=== PATIENT | female | born 1960 | race Caucasian/White ===

== ENCOUNTER 2022-08-06 21:08 | Emergency (ER) | payer MEDICAID, SELFPAY ==
[2022-08-06 21:14] VITALS: BP 190/72; PULSE 76; RESP 16; TEMP 36.3; O2SAT 99; BMI 30.9
--- NOTE | 2022-08-06 21:52 | ED_ITS ---
HPI - Skin/Abscess/Foreign Bdy General Chief complaint: Skin/Abscess/Foreign Body Stated complaint: POISON KATARINA ON ARM & IS SPREADING Time Seen by Provider: 08/06/22 21:31 History of Present Illness HPI narrative: This patient comes in with pruritic rash on her upper extremities. This started about 3 days ago. She was in an area outdoors where she was told there was some plants that were poisonous. She has a few lesions on each arm and a couple on her legs that are macular papular rashes with pruritus. She states there was some vesicular component to it previously. She does not report any shortness of breath. She has not had any fevers. She did use hydrocortisone cream with transient minimal relief. Related Data Home Medications Medication Instructions Recorded Confirmed No Known Home Medications 08/06/22 08/06/22 Allergies Allergy/AdvReac Type Severity Reaction Status Date / Time house dust mite Allergy Intermediate congestion Verified 08/06/22 21:21 levofloxacin Allergy Intermediate myalgias, Verified 08/06/22 21:21 palpitations Iodinated Contrast Media Allergy Unknown Verified 08/06/22 21:21 Review of Systems Status of ROS: Reports: 10 or more systems reviewed and unremarkable except as noted in History and below Narrative: Constitutional: No fevers, no weight gain or loss. Eyes: No discharge. No vision changes. HENT: No congestion, no sore throat, no ear pain. Cardiovascular: No chest pain, no palpitations. Respiratory: No shortness of breath, no wheezes, no cough. Gastrointestinal: No abdominal pain, no vomiting, no diarrhea. Genitourinary: No dysuria, no hematuria. Musculoskeletal: Normal range of motion. Skin: Pruritic rash as described above. Neurological: No dizziness, weakness, sensory change, speech change. Endo/Heme/Allergies: No bruising or bleeding. No polydipsia. Pysch: no suicidality, no anxiety, no insomnia. All other systems reviewed and are negative. Exam Narrative: Exam Narrative: Constitutional: Well-developed, well-nourished, no acute distress. HEENT: Normocephalic, atraumatic. Neck: Normal range of motion. Nontender. Supple. Heart: Intact distal pulses. Lungs: No chest discomfort. No wheezes, rhonchi, or rales. Abdomen: Nontender. Back: Normal range of motion. Extremities: Normal range of motion. No injury. Skin: Maculopapular areas of rash on the arms and legs typical of poison katarina or poison oak. Neurologic: No altered sensation. No weakness. Alert and oriented. Psychiatric: No suicidality. No anxiety or depression. No insomnia. Nursing notes and vitals signs are reviewed. Const: Vital Signs, click to edit/add: Vital Signs - 24 hr 08/06/22 21:14 Temperature 97.4 F L Pulse Rate [Left P ulse Oximeter] 76 Respiratory Rate 16 Blood Pressure [Le ft Upper Arm] 190/72 H Pulse Oximetry 99 Oxygen Delivery Me thod Room Air Course Vital Signs Vital signs: Initial Vital Signs Temperature 97.4 F L 08/06/22 21:14 Temperature Source Temporal Artery Scan 08/06/22 21:14 Pulse Rate 76 08/06/22 21:14 Pulse Rhythm 08/06/22 21:14 Pulse Strength 3+ Normal 08/06/22 21:14 Respiratory Rate 16 08/06/22 21:14 Blood Pressure 190/72 H 08/06/22 21:14 Blood Pressure Mean 111 08/06/22 21:14 Blood Pressure Position Sitting 08/06/22 21:14 Pulse Oximetry 99 08/06/22 21:14 Oxygen Delivery Method 08/06/22 21:14 Vital Signs Temperature 97.4 F L 08/06/22 21:14 Pulse Rate 76 08/06/22 21:14 Respiratory Rate 16 08/06/22 21:14 Blood Pressure 190/72 H 08/06/22 21:14 Pulse Oximetry 99 08/06/22 21:14 Oxygen Delivery Method 08/06/22 21:14 Temperature 97.4 F L 08/06/22 21:14 Pulse Rate 76 08/06/22 21:14 Respiratory Rate 16 08/06/22 21:14 Blood Pressure 190/72 H 08/06/22 21:14 Pulse Oximetry 99 08/06/22 21:14 Oxygen Delivery Method 08/06/22 21:14 MDM - Skin/Abscess/Foreign Bdy MDM Narrative Medical decision making narrative: This patient has a pruritic rash due to some type of contact dermatitis. She received an oral dose of dexamethasone 10 mg. Prescription is provided also for Medrol Dosepak and triamcinolone cream. I advised her to use [id number] antihistamine and medications also. Discharge Plan Discharge Clinical Impression: Contact dermatitis Patient Disposition: Home, Self-Care Condition: Stable Additional Instructions: Take medication as needed and indicated. Follow up with MD or return if worsening. Prescriptions: No Action No Known Home Medications Stand Alone Forms: [address] Info Instructions
[2022-08-06] MEDS: dexAMETHasone 10 MG/ML inj PO (22:16)
== END 2022-08-06 22:25 | disposition home or self-care (01) ==
PROVIDERS: Emergency Provider Emergency Medicine Emergency Medical Services; PCP Family Medicine
DX: L23.7 Allergic contact dermatitis due to plants, except food (principal)
CPT/HCPCS: 99283; 99284; J1100

== ENCOUNTER 2023-03-21 17:25 | Emergency (ER) | payer MEDICAID, SELFPAY ==
[2023-03-21 17:37] VITALS: BP 155/79; PULSE 86; RESP 18; TEMP 37.2; O2SAT 96; BMI 31.9
--- NOTE | 2023-03-21 17:52 | ED.EYEPROB ---
HPI - Eye Problem General Time Seen by Provider: 17:52 Date Seen: 03/21/23 Chief complaint: Eye Problems Stated complaint: Blurred vision Time Seen by Provider: 03/21/23 17:49 Source: patient and RN notes reviewed Mode of arrival: ambulatory Limitations: no limitations History of Present Illness HPI Narrative: Patient is a 62yo female that is coming in with concern of episodes of visual changes in her left eye. She has had 3 episodes of light disturbance with her left eye, first one about 5 years ago. She was not evaluated at the time for this. 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 She describes halos of light in the left eye, like spheres. Episodes seem to last about 30 minutes. She will go and rest, drink plenty of water. She admits all have been associated with stress. She endorses significant stress at this time. Her sister had a history of brain bleed and then her bone from the craniotomy became infected. 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 She was up in [place] with her last week and got back later . Was up early Monday and states she hit the ground running. Today got a text from a client that stressed her before her eye thing started. No other neurologic changes. Was able to talk normally, nothing with right eye. Did not note headaches at the time but does endorse a very mild frontal headache now. Related Data Previous Rx's Medication Instructions Recorded methylprednisolone 4 mg tablets in See Rx Instructions PO .COMPLEX 08/06/22 a dose pack (Medrol (Jude)) #21 ea triamcinolone acetonide 0.1 % 1 applic topical BID #15 grams 08/06/22 topical cream Allergies Allergy/AdvReac Type Severity Reaction Status Date / Time house dust mite Allergy Intermediate congestion Verified 08/06/22 21:21 levofloxacin Allergy Intermediate myalgias, Verified 08/06/22 21:21 palpitations Iodinated Contrast Media Allergy Unknown Verified 08/06/22 21:21 Review of Systems Status of ROS: Reports: 6 or more systems reviewed and unremarkable except as noted in History and below PFSH PFS Social History Smoking Status: Former smoker Do you use any of these nicotine containing products: None Second hand tobacco smoke exposure: No How often do you have a drink containing alcohol: monthly or less How many standard drinks containing alcohol do you have on a typical day: 1 or 2 How often do you have six or more drinks on one occasion: Never AUDIT-C Alcohol total score: 1 Non-prescribed substance use: denies use service: No Exam Const: Vital Signs, click to edit/add: Vital Signs - 24 hr 03/21/23 17:37 03/21/23 18:00 Temperature 98.9 F Pulse Rate [Pulse Oximeter] 86 85 Respiratory Rate 18 18 Blood Pressure [Ri ght Upper Arm] 155/79 H 176/94 H Pulse Oximetry 96 97 Oxygen Delivery Me thod Room Air Room Air Documenting provider has reviewed patient's vital signs: yes Common normals: no apparent distress, average body habitus, oriented x3, no limitations, healthy appearing and alert HENMT: Common normals: normocephalic, head/scalp atraumatic, hearing grossly normal bilaterally, external ears normal, TM's normal bilaterally, external nose normal, nasal mucous membranes and turbinates normal, moist oral mucous membranes, oropharynx normal, dentition normal and gingiva normal Head and scalp: normocephalic and atraumatic Nose: external nose normal and nasal mucous membranes and turbinates normal External ear: external ears normal Tympanic membrane: TM's normal bilaterally Eye: Common normals: PERRL, EOMs intact bilaterally, conjunctivae normal, no scleral icterus and normal visual farrar by confrontation General eye: normal appearance of both eyes Periorbital: periorbital findings normal Eyelid: eyelids normal Conjunctiva: conjunctiva(e) normal Pupil: PERRL Neck & C-Spine: Common normals: full ROM, no lymphadenopathy, supple, no meningeal signs, no JVD and thyroid normal Thyroid: thyroid normal Resp: Common normals: normal respiratory effort, no retractions, no use of accessory muscles and clear to auscultation bilaterally Auscultation: clear to auscultation bilaterally Cardio: Common normals: no JVD, regular rate, regular rhythm, S1 normal heart sound, S2 normal heart sound, no gallops, no clicks and no murmurs Rate: regular rate Rhythm: regular rhythm Heart sounds: S1 normal and S2 normal GI: Common normals: Normal to inspection, nondistended, normoactive bowel sounds present, soft to palpation, non-tender, no hepatosplenomegaly and no masses Palpation: soft and no hepatosplenomegaly Neuro: [place] Coma Scale: document GCS findings Abdelrahman coma scale eye opening: Spontaneous (4) [place] coma scale verbal response: Orientated (5) [place] coma scale motor response: Obey commands (6) [place] coma scale total score: 15 Common normals: oriented x3, CN's II-XII intact bilaterally, moves all extremities, no focal motor deficits, no sensory deficits noted and gait normal Sensorium/orientation: alert Meningeal signs: no meningeal signs Speech: speech normal Motor exam: strength 5/5 throughout, no tremor noted, no asterixis, no fasciculations and muscle tone normal throughout Course Reevaluation(s) Reevaluation #1: Patient came out of room as I was going to room 4, discussed that all symptoms including her mild headache were gone. She thinks that these very well might be ocular migraines. Reviewed with her that I did speak to optometry who did not feel that this was retinal in nature. Discussed that I did page neurology but have not heard back yet. She requests to leave at this time. I did agree to call her neurology recommendations; she does understand that they may recommend further workup. She also agrees to return with any return of her symptoms. Her visual acuity was 20/30 left and 20/25 right, she feels that this is her baseline. Time: 19:05 Reevaluation #2: I unfortunately did not get a chance to call this patient back during the evening hours of my shift. Will see if nursing staff can call in am and update that neurology agreed with plan. Time: 01:10 Consultations Consultation #1: Spoke with Dr. Michael from [facility], she agrees that this does not seem concerning for retinal tear or detachment in the fact that it goes away. She does agree that the patient should be evaluated sometime soon by her eye doctor. Time: 18:10 Consultation #2: Did speak with Dr. Bernard regarding patient just shortly after she left. He agreed likely migraine/ocular migraine even without the significant headache symptoms. Only other thing would be retinal artery occlusion which he felt that this situation was not very likely at all given her clinical history. He did not recommend further work up at this time. Time: 19:17 Vital Signs Vital signs: Initial Vital Signs Temperature 98.9 F 03/21/23 17:37 Temperature Source Temporal Artery Scan 03/21/23 17:37 Pulse Rate 86 05/16/23 17:37 Pulse Rhythm Regular 03/21/23 17:37 Respiratory Rate 18 03/21/23 17:37 Blood Pressure 155/79 H 03/21/23 17:37 Blood Pressure Mean 104 03/21/23 17:37 Blood Pressure Position Supine 03/21/23 17:37 Pulse Oximetry 96 03/21/23 17:37 Oxygen Delivery Method Room Air 03/21/23 17:37 Vital Signs Temperature 98.9 F 03/21/23 17:37 Pulse Rate 86 03/21/23 17:37 Respiratory Rate 18 03/21/23 17:37 Blood Pressure 155/79 H 03/21/23 17:37 Pulse Oximetry 96 03/21/23 17:37 Oxygen Delivery Method Room Air 03/21/23 17:37 Temperature 98.9 F 03/21/23 17:37 Pulse Rate 85 03/21/23 18:00 Respiratory Rate 18 03/21/23 18:00 Blood Pressure 176/94 H 03/21/23 18:00 Pulse Oximetry 97 03/21/23 18:00 Oxygen Delivery Method Room Air 03/21/23 18:00 Critical Care Time Critical Care Time Critical Care Time: No Discharge Plan Discharge Clinical Impression: Visual changes Patient Disposition: Home, Self-Care Condition: Stable Instructions: Migraine Headache (ED) Additional Instructions: Recommend follow up with both your eye doctor and your primary care provider. Discuss migraine management with your primary care provider, especially if these are becoming more frequent. Can always get referral to neurology if needed from your primary care provider as well. Prescriptions: No Action triamcinolone acetonide 0.1 % cream 1 applic topical BID Qty: 15 0RF methylprednisolone [Medrol (Jude)] 4 mg tablets,dose pack See Rx Instructions .ROUTE .COMPLEX Qty: 21 0RF Rx Instructions: orally per package directions Follow Up/Referrals: Nohemy Hooker MD [Primary Care Provider] -
[2023-03-21 18:00] VITALS: BP 176/94; PULSE 85; RESP 18; O2SAT 97
--- NOTE | 2023-03-21 19:17 | ED.NURSE ---
had left woth relative. anw neuro was called -called back and speaking to dr house. had denies symptoms. was anxious to go home. alert and oriented
== END 2023-03-21 19:06 | disposition home or self-care (01) ==
LOC: ED 18:20
PROVIDERS: Emergency Provider Family Medicine; PCP Family Medicine
DX: H53.8 Other visual disturbances (principal)
CPT/HCPCS: 99282; 99283; 99284